=== PATIENT | female | born 1960 | race Caucasian/White ===

== ENCOUNTER 2020-07-09 14:09 | Emergency (ER) | payer OTHER, SELFPAY ==
[2020-07-09 14:30] VITALS: BP 146/86; PULSE 86; RESP 20; TEMP 37.1; O2SAT 100
--- NOTE | 2020-07-09 14:31 | ED.URI ---
HPI - URI/Sore Throat General Chief Complaint: Upper Respiratory Infection Stated Complaint: pos sinus infection Source: patient Mode of arrival: ambulatory Limitations: no limitations History of Present Illness HPI Narrative: Patient is a 59-year-old female who presents complaining of sinus pressure, congestion and headache intermittent for the past week and a half and consistent and worsening x3 days. Patient works at [employer] in [employer] and has unknown possible exposure to Covid. She denies sore throat, chest pain or shortness of breath at this time. She reports headache is 4/10 and constant. She denies taking [id number] medications at this time. MD elicited complaint: sinus pain and other (Headache) Related Data Allergies Allergy/AdvReac Type Severity Reaction Status Date / Time No Known Allergies Allergy Verified 07/09/20 14:41 Review of Systems Review of Systems: Narrative: CONSTITUTIONAL: Denies fever, chills, or sweats. EYES: Denies visual changes, redness, or discharge. ENT: Reports congestion and sinus pressure CARDIOVASCULAR: Denies chest pain, palpitations, or edema. RESPIRATORY: Denies cough or dyspnea. GASTROINTESTINAL: Denies abdominal pain, nausea, vomiting, or diarrhea. GENITOURINARY: Denies dysuria or hematuria. SKIN: Denies rash or itching. MUSCULOSKELETAL: Denies back pain, joint pain, or myalgia. NEUROLOGIC: Reports headache. PSYCHIATRIC: Denies anxiety or depression. [facility] Past Medical History Medical History (Updated 07/09/20 @ 14:52 by DINORAH Aguirre) No significant past medical history Surgical History Surgical History (Updated 07/09/20 @ 14:35 by DINORAH Aguirre) No significant past surgical history Family History Family History (Updated 07/09/20 @ 14:36 by DINORAH Aguirre) Other No significant family history Social History Social History (Updated 07/09/20 @ 14:35 by DINORAH Aguirre) Smoking status: Never smoker Alcohol intake: never Substance use: never Living arrangements: with family Occupation/Education: occupation Gender identity (if verbalized by the patient): Female Comments At the time of signature, I have reviewed and agree with nursing past medical, surgical, social, and family history unless otherwise noted. Please see nursing chart for further information. There is no relevant family history pertinent to the presenting complaint. Exam Narrative: Exam Narrative: GENERAL: Well-appearing, well-nourished, and in no acute distress. HEAD: Normocephalic, atraumatic. EYES: EOMI. No redness or drainage. Conjunctiva are normal. ENT: Mucous membranes pink and moist. Frontal sinus tenderness with palpation. Throat normal. Uvula midline. NECK: AROM. Supple. No lymphadenopathy. CHEST: No respiratory distress. HEART: Regular rate and rhythm. EXTREMITIES: Normal range of motion. SKIN: Warm, dry, no rash. NEURO: No focal deficits. Alert and oriented x3. Gait steady. PSYCH: Normal affect. No signs of depression or anxiety. Course Vital Signs Vital signs: Vital Signs Temperature 37.1 C 07/09/20 14:30 Pulse Rate 86 07/09/20 14:30 Respiratory Rate 20 07/09/20 14:30 Blood Pressure 146/86 H 07/09/20 14:30 Pulse Oximetry 100 07/09/20 14:30 Temperature 37.1 C 07/09/20 14:30 Pulse Rate 86 07/09/20 14:30 Respiratory Rate 20 07/09/20 14:30 Blood Pressure 146/86 H 07/09/20 14:30 Pulse Oximetry 100 07/09/20 14:30 MDM - URI/Sore Throat MDM Narrative Medical decision making narrative: Patient's rapid Covid was negative at this time. Covid PCR sent to lab. Discussed with patient likelihood of Covid versus sinusitis. Patient to be treated for sinusitis as well as requesting Covid testing. Discussed quarantine with patient. Patient is stable for discharge home with outpatient follow-up as needed. Differential Diagnosis Differential diagnosis: Likely upper respiratory infection, sinusitis, prema
[2020-07-10 16:31] LABS: SARS-CoV-2 RNA PCR Negative
== END 2020-07-09 14:55 | disposition home or self-care (01) ==
PROVIDERS: Emergency Provider Nurse Practitioner; PCP Family Medicine
DX: J01.10 Acute frontal sinusitis, unspecified (principal); Z20.822 Contact with and (suspected) exposure to COVID-19
CPT/HCPCS: 87426; 99203; C9803; G0463; U0003; U0005